=== PATIENT | male | born 1950 | race Hispanic/Latino ===

== ENCOUNTER 2017-07-17 22:01 | Observation (INO) | payer MEDICARE ==
[2017-07-17 22:04] VITALS: BMI 46.3
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
[2017-07-17 23:25] LABS: BASO # 0.02 K/mm3 (0.0-2.0); BASO % 0.2 % (0.0-3.0); EOS # 0.1 (0.0-0.7); EOS % 0.6 % (1.5-5.0); GRAN # 6.29 (1.4-6.5); GRAN % 74.9 % (50.0-68.0); HEMATOCRIT 35.3 % (42.0-52.0); LYMPH # 1.4 (1.2-3.4); LYMPH % 16.2 % (22.0-35.0); MEAN CELL VOLUME 98.3 fl (80.0-105.0); MEAN CORPUSCULAR HEMOGLOBIN 31.5 pg (25.0-35.0); MEAN PLATELET VOLUME 11.5 fl (7.0-11.0); MONO # 0.7 (0.1-0.6); MONO % 8.1 % (1.0-6.0); RED CELL DISTRIBUTION WIDTH 13.7 % (11.5-14.5); WHITE BLOOD COUNT 8.4 10^3/ul (4.5-11.0)
[2017-07-17 23:36] LABS: ALB/GLOB RATIO 1.2 (1.1-1.8); ALKALINE PHOSPHATASE 105 U/L (38-126); ALT/SGPT 29 U/L (7-56); AST/SGOT 59 U/L (17-59); BILIRUBIN,TOTAL 1.2 mg/dL (0.2-1.3); BLOOD UREA NITROGEN 23 mg/dL (7-21); CALCIUM 9.5 mg/dL (8.4-10.5); CARBON DIOXIDE 30 mmol/L (21-33); CHLORIDE 101 mmol/L (98-107); GFR AFRICAN-AMERICAN > 60; GLUCOSE,RANDOM 116 mg/dL (70-110); MAGNESIUM 1.9 mg/dL (1.7-2.2); POTASSIUM 4.3 mmol/L (3.6-5.0); SODIUM 141 mmol/L (132-148)
[2017-07-17 23:37] LABS: INR 1.03 (0.93-1.08); PARTIAL THROMBOPLASTIN TIME 25.2 Seconds (23.7-30.8)
[2017-07-17 23:47] LABS: TROPONIN I 0.02 ng/mL
[2017-07-18] MEDS ORDERED: Pneumococcal 23-Valent Vaccine IM ONE (03:56)
[2017-07-18 03:57] VITALS: RESP 20
[2017-07-18 05:36] LABS: URINE BILIRUBIN SMALL (NEGATIVE); URINE BLOOD NEGATIVE (NEGATIVE); URINE GLUCOSE (UA) NEGATIVE (NEGATIVE); URINE KETONE TRACE mg/dL (NEGATIVE); URINE LEUKOCYTE ESTERASE NEGATIVE Leu/uL (NEGATIVE); URINE PROTEIN TRACE mg/dL (<30 mg/dL); URINE UROBILINOGEN 0.2 E.U./dL (<1 E.U./dL)
[2017-07-18 05:45] LABS: URINE COLOR YELLOW (YELLOW)
[2017-07-18 05:46] LABS: URINE APPEARANCE CLEAR (CLEAR)
[2017-07-18 05:50] LABS: URINE EPITHELIAL CELLS 0 - 2 /hpf (0-5); URINE RBC 0 - 2 /hpf (0-2); URINE WBC 0 - 2 /hpf (0-6)
[2017-07-18] MEDS ORDERED: Pantoprazole 40 mg EC Tab PO SCH (06:00)
[2017-07-18 07:00] LABS: BASO # 0.01 K/mm3 (0.0-2.0); BASO % 0.2 % (0.0-3.0); EOS # 0.1 (0.0-0.7); EOS % 2.4 % (1.5-5.0); GRAN # 3.74 (1.4-6.5); GRAN % 63.7 % (50.0-68.0); HEMATOCRIT 31.8 % (42.0-52.0); LYMPH # 1.3 (1.2-3.4); LYMPH % 21.8 % (22.0-35.0); MEAN CELL VOLUME 97.8 fl (80.0-105.0); MEAN CORPUSCULAR HEMOGLOBIN 30.8 pg (25.0-35.0); MEAN CORPUSCULAR HGB CONC 31.4 g/dl (31.0-37.0); MEAN PLATELET VOLUME 11.3 fl (7.0-11.0); MONO # 0.7 (0.1-0.6); MONO % 11.9 % (1.0-6.0); RED CELL DISTRIBUTION WIDTH 13.8 % (11.5-14.5); WHITE BLOOD COUNT 5.9 10^3/ul (4.5-11.0)
[2017-07-18 07:27] LABS: ALB/GLOB RATIO 1.1 (1.1-1.8); ALKALINE PHOSPHATASE 88 U/L (38-126); ALT/SGPT 42 U/L (7-56); AST/SGOT 50 U/L (17-59); BILIRUBIN,TOTAL 0.9 mg/dL (0.2-1.3); BLOOD UREA NITROGEN 23 mg/dL (7-21); CALCIUM 9.1 mg/dL (8.4-10.5); CARBON DIOXIDE 33 mmol/L (21-33); CHLORIDE 103 mmol/L (98-107); GFR AFRICAN-AMERICAN > 60; GLUCOSE,RANDOM 102 mg/dL (70-110); POTASSIUM 4.5 mmol/L (3.6-5.0); SODIUM 143 mmol/L (132-148); TOTAL PROTEIN 6.3 g/dL (5.8-8.3)
[2017-07-18 07:37] VITALS: BP 165/81; PULSE 78; TEMP 97.6; O2SAT 99
[2017-07-18] MEDS ORDERED: Arformoterol 15 mcg/2 ml Inh Sol IH SCH (08:00)
[2017-07-18] MEDS ORDERED: Budesonide 0.5 mg/2 ml Inhal Susp UD IH SCH (08:00)
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
[2017-07-18] MEDS ORDERED: Albuterol-Ipratrop 3 mg / 0.5 (3 ml) UD IH PRN (08:15)
--- NOTE | 2017-07-18 08:52 | RAD ---
HISTORY: L humerus fx; pre-op COMPARISON: 12/29/2013. TECHNIQUE: Chest PA and lateral FINDINGS: LUNGS: The lungs are well inflated and clear. PLEURA: No significant pleural effusion identified. No pneumothorax apparent. CARDIOVASCULAR: Normal. OSSEOUS STRUCTURES: No significant abnormalities. VISUALIZED UPPER ABDOMEN: Normal. OTHER FINDINGS: None. IMPRESSION: No active pulmonary disease.
--- NOTE | 2017-07-18 10:38 | RAD ---
PROCEDURE: Radiographs of the left humerus. HISTORY: Left humerus fx COMPARISON: None. FINDINGS: BONES: There is an acute displaced fracture in the neck of the humerus with 1.5 cm medial displacement. SOFT TISSUES: Normal. OTHER FINDINGS: None. IMPRESSION: Acute displaced fracture in the neck of the humerus.
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
[2017-07-18] MEDS ORDERED: Albuterol-Ipratrop 3 mg / 0.5 (3 ml) UD IH SCH (14:00)
--- NOTE | 2017-07-19 01:37 | CARD ---
APPROVED REPORT EKG Measurement Heart [id number] <Conclusion> Normal sinus rhythm Low voltage QRS Borderline ECG
== END 2017-07-18 14:26 | disposition home or self-care (01) ==
LOC: ED 22:01 → INTOOBSV 22:40 → ERH 22:40 → 5RNO 07-18 00:51
PROVIDERS: ADMIT Internal Medicine; ATTEND Internal Medicine
DX: S42.212A Unspecified displaced fracture of surgical neck of left humerus, initial encounter for closed fracture (principal); W19.XXXA Unspecified fall, initial encounter; J61 Pneumoconiosis due to asbestos and other mineral fibers; M10.9 Gout, unspecified; G47.33 Obstructive sleep apnea (adult) (pediatric); I50.9 Heart failure, unspecified; I11.0 Hypertensive heart disease with heart failure; Y93.89 Activity, other specified; Y92.89 Other specified places as the place of occurrence of the external cause; Z87.891 Personal history of nicotine dependence
CPT/HCPCS: 36415; 71020; 73060; 80053; 81001; 82550; 83615; 83735; 84100; 84484; 85025; 85610; 85730; 93005; 99284; G0378; G0480

== ENCOUNTER 2018-05-02 22:07 | Emergency (ER) | payer MEDICARE ==
[2018-05-02 22:07] VITALS: BMI 46.3
[2018-05-02] MEDS ORDERED: TDAP Vaccine 0.5 mL Syr IM ONE (22:21)
[2018-05-02 22:23] VITALS: RESP 18; TEMP 98.6; O2SAT 97
--- NOTE | 2018-05-02 22:28 | ED PDOC ---
Arrival/HPI - General Chief Complaint: Trauma Time Seen by Provider: 05/02/18 22:08 Historian: Patient, EMS - History of Present Illness Narrative History of Present Illness (Text): 05/02/18 22:15 67 year old male, whose past medical history includes chronic left humeral neck fracture with subluxation/hypertension/CHF?/Gout/sleep apnea, last TDAP unknown , who presents to the Emergency department brought in by EMS this evening status post slipped and fall while going upstairs landed on the on to his left hand/forearm after drinking. Patient states he had a couple of cans of beer tonight while at a barbeque with friends. Patient was walking up the 3rd step on his stairs when he slipped and fell on to his left hand and left forearm. Patient states he sustained some abrasion to the area. Patient is able to recall the event with no LOC, denies any loss of consciousness. Patient denies any chest pain, shortness of breath, palpitation, weakness or dizziness prior to the fall. Time/Duration: Prior to Arrival Symptom Onset: Sudden Symptom Course: Unchanged Activities at Onset: Light Context: Walking, Home, Tripped Past Medical History - Provider Review Nursing Documentation Reviewed: Yes - Infectious Disease Hx of Infectious Diseases: None - Tetanus Immunization Tetanus Immunization: Unknown - Cardiac Hx Cardiac Disorders: Yes Hx Congestive Heart Failure: Yes Hx Hypertension: Yes - Pulmonary Hx Sleep Apnea: Yes - Neurological Hx Neurological Disorder: No - HEENT Hx HEENT Disorder: No - Renal Hx Renal Disorder: No - Endocrine/Metabolic Hx Endocrine Disorders: No - Hematological/Oncological Hx Blood Transfusions: No - Integumentary Hx Dermatological Disorder: No - Musculoskeletal/Rheumatological Hx Musculoskeletal Disorders: Yes Hx Falls: Yes Hx Unsteady Gait: Yes - Genitourinary/Gynecological Hx Genitourinary Disorders: No - Psychiatric Hx Psychophysiologic Disorder: Yes (H/O OF SMOKING CIGARETTES 2-3 PKS/DAY QUIT, DRINKS 30 PKS OF BUD AND SHOTS) Hx Depression: No Hx Emotional Abuse: No Hx Physical Abuse: No Hx Substance Use: No - Past Surgical History Past Surgical History: No Previous - Anesthesia Hx Anesthesia: No - Suicidal Assessment Feels Threatened In Home Enviroment: No Family/Social History - Physician Review Nursing Documentation Reviewed: Yes Family/Social History: Unknown Family HX Smoking Status: Former Smoker Hx Alcohol Use: Yes (15 beers daily) Hx Substance Use: No Hx Substance Use Treatment: No Allergies/Home Meds Allergies/Adverse Reactions: Allergies No Known Allergies Allergy (Verified 05/02/18 22:10) Home Medications: Home Meds Medication Instructions Recorded Confirmed Furosemide [Lasix] 20 mg PO DAILY 12/23/13 05/02/18 Fluticasone/Salmeterol [Advair 1 puff IH BID PRN 12/28/13 05/02/18 250-50 Diskus] Allopurinol [Zyloprim] 100 mg PO DAILY 05/02/18 05/02/18 Aspirin [Ecotrin] 81 mg PO DAILY 05/02/18 05/02/18 Calcitonin,[place],Synthetic 1 spray INH DAILY 05/02/18 05/02/18 [Calcitonin-[place]acho] Calcium/Chloride/Magnesium 1 tab PO DAILY 05/02/18 05/02/18 [Slow-Mag] Cholecalciferol (Vitamin D3) 1 tab PO DAILY 05/02/18 05/02/18 [D3-2000] Irbesartan [Avapro] 300 mg PO DAILY 05/02/18 05/02/18 Metoprolol Tartrate [Lopressor] 50 mg PO DAILY 05/02/18 05/02/18 Multivitamin [Multivitamins] 1 tab PO DAILY 05/02/18 05/02/18 Vitamin B Complex [B Complex # 1] 100 mg PO DAILY 05/02/18 05/02/18 Review of Systems - Physician Review All systems were reviewed & negative as marked: Yes - Review of Systems Constitutional: absent: Fatigue, Fevers Eyes: absent: Vision Changes ENT: absent: Hearing Changes Respiratory: absent: SOB, Cough, Sputum Cardiovascular: absent: Chest Pain Gastrointestinal: absent: Abdominal Pain, Nausea, Vomiting Musculoskeletal: Arthralgias Skin: Other (+abrasion). absent: Rash, Pruritis, Skin Lesions Neurological: absent: Headache, Dizziness, Focal Weakness, Gait Changes, Seizure Psychiatric: absent: Anxiety, Depression Physical Exam Vital Signs Reviewed: Yes Vital Signs Temp Pulse Resp BP Pulse Ox 05/03/18 02:54 97 05/03/18 01:45 82 18 124/70 97 05/02/18 22:22 98.6 F 80 18 122/68 97 Temperature: Afebrile Blood Pressure: Normal Pulse: Regular Respiratory Rate: Normal Appearance: Positive for: Well-Appearing, Non-Toxic, Comfortable Pain Distress: Mild Mental Status: Positive for: Alert and Oriented X 3 - Systems Exam Head: Present: Atraumatic, Normocephalic, Other (no facial bony tenderness). No : Tenderness, Contusion, Swelling, Ecchymosis, Abrasion, Laceration Pupils: Present: PERRL Extroacular Muscles: Present: EOMI Conjunctiva: Present: Normal Ears: Present: NORMAL TM, Normal Canal. No: Erythema Mouth: Present: Moist Mucous Membranes Pharnyx: No: ERYTHEMA, EXUDATE, TONSILS ENLARGED Nose (External): Present: Atraumatic. No: Abrasion, Contusion, Laceration Nose (Internal): Present: Normal Inspection, No Active Bleeding. No: Rhinorrhea , Septal Hematoma, Epistaxis Neck: Present: Normal Range of Motion, Trachea Midline. No: Meningeal Signs, MIDLINE TENDERNESS, Paraspinal Tenderness, Lymphadenopathy Respiratory/Chest: Present: Clear to Auscultation, Good Air Exchange. No: Respiratory Distress, Accessory Muscle Use Cardiovascular: Present: Regular Rate and Rhythm, Normal S1, S2. No: Murmurs Abdomen: No: Tenderness, Distention, Peritoneal Signs, Rebound, Guarding Back: Present: Normal Inspection. No: CVA Tenderness, Midline Tenderness, Paraspinal Tenderness Upper Extremity: Present: Normal Inspection, Normal ROM, NORMAL PULSES, Neurovascularly Intact, Capillary Refill < 2s, Other (LUE: mild +ttp on the distal ulnar and lateral hand region with mild abrasion, no laceration, no scaphoid tenderness, no elbow tenderness, FROM without limitation, sensation intact, motor 5/5, +radial pulse, capillary refill< 2 seconds, neurovascular intact. ). No: Cyanosis, Edema, Erythema, Deformity Lower Extremity: Present: Normal Inspection, Normal ROM, Neurovascularly Intact , Capillary Refill < 2 s. No: Edema, Tenderness, Swelling, Deformity, Temperature Abnormalties Neurological: Present: GCS=15, CN II-XII Intact, Speech Normal Skin: Present: Warm, Dry, Normal Color. No: Rashes Psychiatric: Present: Alert, Oriented x 3, Normal Insight, Normal Concentration Medical Decision Making ED Course and Treatment: 05/02/18 22:15 Impression: 67 year old male s/p trip and fall on to left hand/forearm, sustained a few abrasions prior to arrival. Plan: -- CT Head/Cervical -- XR Left Hand, XR Left Wrist -- TDAP -- Wound irrigation with saline and betadyne, cover with Bacitracin and gauze -- Reassess and disposition 05/03/18 00:21 -CT head No acute intracranial findings. -CT cervical show Degenerative changes with no acute traumatic osseous injury. -Lt. hand xray: no fracture or dislocation. -Lt. forearm xray: no fracture or dislocation. -Lt. wrist xray: no fracture or dislocation. -Pt. feels well, pain decreased, abrasion wrapped, all radiology results discussed, sister on the bed side and would take the patient home. -Discharge home with tylenol, bacitracin oinment, follow up with your own pmd and orthopedic within 2 days, return to the ER for any new or worsening signs or symptoms. - RAD Interpretation Radiology Orders: 05/02/18 22:21 CERVICAL SPINE W/O CONTRAST [CT] Stat HEAD W/O CONTRAST [CT] Stat HAND LEFT 3 VIEWS ROUTINE [RAD] Stat WRIST, LEFT 3 VIEWS [RAD] Stat 05/02/18 22:44 FOREARM LEFT [RAD] Stat CT head: FINDINGS: Brain: This volume loss. Mild chronic small vessel white matter ischemic change. No acute hemorrhage. No acute infarct. Ventricles: No hydrocephalus. Bones/joints: No acute fracture. Soft tissues: Unremarkable. Sinuses: No acute sinusitis. Mastoid air cells: Unremarkable as visualized. IMPRESSION: No acute intracranial findings. Thank you for allowing us to participate in the care of your patient. Dictated and Authenticated by: Jace Brower MD 05/03/2018 12:15 AM Eastern Time ([place] & [place]) CT Cervical: Vertebrae: No acute fracture. No acute subluxation. Multilevel degenerative changes. Straightening of cervical lordosis. Discs/spinal canal/neural foramina: No acute findings. Degenerative changes. Soft tissues: Unremarkable. Sinuses: Mild maxillary sinus mucosal thickening. No fluid levels. Lung apices: Unremarkable as visualized. IMPRESSION: Degenerative changes with no acute traumatic osseous injury. Thank you for allowing us to participate in the care of your patient. Dictated and Authenticated by: Jace Brower MD 05/03/2018 12:12 AM Eastern Time ([place]) Lt. hand xray: PROCEDURE: Left Hand Radiographs. HISTORY: Trauma left upper extremity. COMPARISON: None. FINDINGS: BONES: Normal. No fracture. JOINTS: Osteoarthritic changes proximal and distal interphalangeal joint distribution. SOFT TISSUES: Normal. OTHER FINDINGS: None. IMPRESSION: No acute findings related to/accounting for the clinical presentation. Concordant results with the preliminary interpretation rendered by the emergency department physicianELIAZAR at the conclusion of the procedure. Lt. wrist xray: PROCEDURE: Left Wrist Radiographs. HISTORY: fall COMPARISON: None. FINDINGS: BONES: No acute fracture. JOINTS: Normal. No dislocation. SOFT TISSUES: Normal. OTHER FINDINGS: None. IMPRESSION: No acute findings related to/accounting for the clinical presentation. Concordant results with the preliminary interpretation rendered by the emergency department physician\PA at the conclusion of the procedure. Lt. forearm xray: PROCEDURE: Radiographs of the Left Forearm HISTORY: fall COMPARISON: None available. TECHNIQUE: Frontal and lateral views obtained. FINDINGS: BONES: No fracture or destructive lesion. JOINT SPACES: Unremarkable. OTHER FINDINGS: None. IMPRESSION: Unremarkable radiographs of the left forearm. Concordant results with the preliminary interpretation rendered by the emergency department physician\PA at the conclusion of the procedure. Bi Consultant: Radiologist - Medication Orders Current Medication Orders: Discontinued Medications Tetanus/Reduced Diphtheria/Acell Pertussis (Boostrix Vaccine Inj) 0.5 ml IM .ONCE ONE Stop: 05/02/18 22:22 Last Admin: 05/02/18 22:47 Dose: 0.5 ml MAR Immunization Data Document 05/02/18 22:47 IT (Rec: 05/02/18 22:47 IT [id number]) Immunization Data Vaccine Information Sheet Given Yes Immunization Registry Document 05/02/18 22:47 IT (Rec: 05/02/18 22:47 IT [id number]) Immunization Registry Consent Date 05/02/18 - PA / TRANSPORTATION SERVICES REPRESENTATIVE / Resident Statement MD/ has reviewed & agrees with the documentation as recorded. - Scribe Statement The provider has reviewed the documentation as recorded by the Giorgioibmarybel Zapata Provider Scribe Attestation: All medical record entries made by the Scribe were at my direction and personally dictated by me. I have reviewed the chart and agree that the record accurately reflects my personal performance of the history, physical exam, medical decision making, and the department course for this patient. I have also personally directed, reviewed, and agree with the discharge instructions and disposition. Disposition/Present on Arrival - Present on Arrival Any Indicators Present on Arrival: No History of DVT/PE: No History of Uncontrolled Diabetes: No Urinary Catheter: No History of Decub. Ulcer: No History Surgical Site Infection Following: None - Disposition Have Diagnosis and Disposition been Completed?: Yes Diagnosis: Accidental fall, Abrasion, Arthralgia Disposition: HOME/ ROUTINE Disposition Time: 00:18 Patient Plan: Discharge Condition: GOOD Additional Instructions: -Discharge home with tylenol, bacitracin oinment, follow up with your own pmd and orthopedic within 2 days, return to the ER for any new or worsening signs or symptoms. Prescriptions: Acetaminophen 2 tab PO QID PRN #30 tablet PRN Reason: Other Bacitracin Ointment [Bacitracin] 1 appful TOP BID #15 g Referrals: Jace Rizo III, MD [Medical Doctor] - Follow up with primary Forms: WORK NOTE
[2018-05-03 02:54] VITALS: BP 124/70; PULSE 82
--- NOTE | 2018-05-03 08:40 | CT ---
PROCEDURE: CT Cervical Spine without contrast HISTORY: etoh fall COMPARISON: None available. TECHNIQUE: Axial computed tomography images were obtained of the cervical spine without the use of intravenous contrast. Coronal and sagittal reformatted images were created and reviewed. Radiation dose: Total exam DLP = 720.92 mGy-cm. This CT exam was performed using one or more of the following dose reduction techniques: Automated exposure control, adjustment of the mA and/or kV according to patient size, and/or use of iterative reconstruction technique. FINDINGS: VERTEBRAE: No fracture. Reversal of the anatomic lordosis with kyphosis. Degree: Mild. No destructive bony lesion. DISCS/SPINAL CANAL/NEURAL FORAMINA: Multilevel cervical spondylotic changes primarily disc space narrowing and anterior fistulous posterior non marginal osteophyte formation. PARASPINAL SOFT TISSUES: Unremarkable. OTHER FINDINGS: None. IMPRESSION: Unremarkable CT of the cervical spine. Concordant results (preliminary interpretation) provided by [employer] Procedure Completed: 23:32 Preliminary ([facility]) Report: Dictated and Authenticated: 00:12. Final Interpretation: 08:30.
--- NOTE | 2018-05-03 08:55 | CT ---
PROCEDURE: CT HEAD WITHOUT CONTRAST. HISTORY: etoh, fall COMPARISON: None available. TECHNIQUE: Axial computed tomography images were obtained through the head/brain without intravenous contrast. Radiation dose: Total exam DLP = 760.41 mGy-cm. This CT exam was performed using one or more of the following dose reduction techniques: Automated exposure control, adjustment of the mA and/or kV according to patient size, and/or use of iterative reconstruction technique. FINDINGS: HEMORRHAGE: No intracranial hemorrhage. BRAIN: No mass effect or edema. Cortical atrophy, periventricular small vessel disease. VENTRICLES: Unremarkable. No hydrocephalus. CALVARIUM: Unremarkable. PARANASAL SINUSES: Unremarkable as visualized. No significant inflammatory changes. MASTOID AIR CELLS: Unremarkable as visualized. No inflammatory changes. OTHER FINDINGS: None. IMPRESSION: No acute intracranial abnormalities. No significant findings to account for the clinical presentation. Concordant results (preliminary interpretation) provided by [email or web address]. Procedure Completed: 23:30 Preliminary ([facility]) Report: Dictated and Authenticated: 00:15. May 03, 2018. Final Interpretation: 08:53. May 03, 2018.
--- NOTE | 2018-05-03 08:58 | RAD ---
PROCEDURE: Left Wrist Radiographs. HISTORY: fall COMPARISON: None. FINDINGS: BONES: No acute fracture. JOINTS: Normal. No dislocation. SOFT TISSUES: Normal. OTHER FINDINGS: None. IMPRESSION: No acute findings related to/accounting for the clinical presentation. Concordant results with the preliminary interpretation rendered by the emergency department physician procedure.
--- NOTE | 2018-05-03 09:13 | RAD ---
PROCEDURE: Radiographs of the Left Forearm HISTORY: fall COMPARISON: None available. TECHNIQUE: Frontal and lateral views obtained. FINDINGS: BONES: No fracture or destructive lesion. JOINT SPACES: Unremarkable. OTHER FINDINGS: None. IMPRESSION: Unremarkable radiographs of the left forearm. Concordant results with the preliminary interpretation rendered by the emergency department physician procedure.
--- NOTE | 2018-05-03 09:14 | RAD ---
PROCEDURE: Left Hand Radiographs. HISTORY: Trauma left upper extremity. COMPARISON: None. FINDINGS: BONES: Normal. No fracture. JOINTS: Osteoarthritic changes proximal and distal interphalangeal joint distribution. SOFT TISSUES: Normal. OTHER FINDINGS: None. IMPRESSION: No acute findings related to/accounting for the clinical presentation. Concordant results with the preliminary interpretation rendered by the emergency department physician procedure.
== END 2018-05-03 02:54 | disposition home or self-care (01) ==
LOC: ED 22:07
DX: S60.512A Abrasion of left hand, initial encounter (principal); W01.0XXA Fall on same level from slipping, tripping and stumbling without subsequent striking against object, initial encounter; I50.9 Heart failure, unspecified; I10 Essential (primary) hypertension; Z23 Encounter for immunization; Z87.891 Personal history of nicotine dependence

== ENCOUNTER 2018-11-27 10:04 | Outpatient (CLI) | payer MEDICARE | END 2018-11-27 10:05 | disposition home or self-care (01) | LOC: RAD 10:04 | DX: S42.202A Unspecified fracture of upper end of left humerus, initial encounter for closed fracture (principal) ==

== ENCOUNTER 2018-12-30 10:52 | Outpatient (CLI) | payer MEDICARE | END 2018-12-30 10:53 | disposition home or self-care (01) | LOC: RAD 10:52 ==